=== PATIENT | female | born 1955 | race African-American/Black ===

== ENCOUNTER 2016-12-03 20:59 | Emergency (ER) | payer OTHER ==
[~2016-12-03] VITALS: Ht 154.9 cm; Wt 99.8 kg
[~2016-12-03 20:59] MED LIST: FEXO60TA25 PO; FLUT9.9S NS; OMEP40CA5 PO; SIMV20TA3 PO
[2016-12-03 23:16] VITALS: BP 204/98
[2016-12-04] MEDS ORDERED: HYDROCODONE/APAP 5/325MG TABLET. PO ONE
[2016-12-04] MEDS ORDERED: HYDR-971 PO (01:16)
--- NOTE | 2016-12-04 01:16 | PHYS DOC ---
Past Medical History Past Medical History: Other Additional Past Medical Histor: HIGH CHOL., SINUS Past Surgical History: Hysterectomy, Other Additional Past Surgical Histo: RT BREAST, COLONOSCOPY Smoking: Less than 1pk/day Alcohol Use: Occasionally Drug Use: None Adult General Chief Complaint Chief Complaint: UPPER EXTREMITY INJURY HPI HPI Patient is a 61 year old female who presents with pain after tripping and falling at 1930 tonight. She reports pain in the left elbow and under her right breast. She denies hitting her head or loss of consciousness. She does not have any numbness or tingling or pain in the neck. Her PCP is Dr. Som Santos. Review of Systems Review of Systems Constitutional: Denies fever or chills. [] Respiratory: Denies cough or shortness of breath. [] Cardiovascular: Denies palpitations or edema. Reports right-sided chest wall pain. Musculoskeletal: Denies back pain. Reports left elbow pain. Integument: Denies rash or skin lesions. [] Neurologic: Denies headache, focal weakness or sensory changes. Denies loss of consciousness. Current Medications Current Medications Current Medications Medications (Trade) Dose Ordered Sig/Nerissa Start Time Stop Time Status Last Admin Dose Admin Acetaminophen/ Hydrocodone Bitart (Lortab 5/325) 1 tab 1X ONCE 12/04/16 00:00 12/04/16 00:01 DC 12/03/16 23:52 1 TAB Allergies Allergies Allergies Coded Allergies Type Severity Reaction Last Updated Verified No Known Drug Allergies 12/30/14 No Physical Exam Physical Exam Constitutional: Well developed, well nourished, no acute distress, non-toxic appearance. [] HENT: Normocephalic, atraumatic, oropharynx moist. [] Eyes: PERRLA, EOMI, conjunctiva normal, no discharge. [] Neck: Normal range of motion, no midline or paraspinal tenderness, supple, no stridor. [] Cardiovascular: Heart rate regular rhythm, no murmur. [] Lungs & Thorax: Bilateral breath sounds clear to auscultation without wheezes, rales, or rhonchi. Right lower anterior chest wall tenderness without crepitus. Skin: Warm, dry, no erythema, no rash. There is no laceration, abrasion, ecchymosis, or other external sign of injury. Back: No midline tenderness, no CVA tenderness. [] Extremities: Left olecranon and lateral epicondyle tenderness, ROM mildly decreased due to pain, no edema. 2+ radial and ulnar pulses. Less than 2 second capillary refill in the fingers. Light touch sensation intact in the fingers. There is mild tenderness in the wrist without decreased range of motion. There is no snuffbox tenderness. Neurologic: Alert and oriented X 3, normal motor function, normal sensory function, no focal deficits noted. [] Psychologic: Affect normal, judgement normal, mood normal. [] Current Patient Data Vital Signs Vital Signs Date Time Temp Pulse Resp B/P Pulse Ox O2 Delivery O2 Flow Rate FiO2 12/03/16 23:52 18 99 Room Air 12/03/16 23:16 98.0 92 98.0 12/03/16 22:51 EKG EKG [] Radiology/Procedures Radiology/Procedures Three-view x-ray of the left elbow reviewed and interpreted by myself with Dr. Dhaliwal. There is a sail sign without fracture or dislocation seen. Three-view x-ray of the left wrist reviewed and interpreted by myself with Dr. Dhaliwal. There is no acute fracture or dislocation. X-ray of the right ribs and chest reviewed and interpreted by myself with Dr. Dhaliwal. There aren't no acute fractures, infiltrates, or pneumothorax seen. Course & Med Decision Making Course & Med Decision Making Pertinent Labs and Imaging studies reviewed. (See chart for details) Patient presents with left elbow and right chest wall pain after mechanical fall. On exam, she has tenderness of the left elbow, left wrist, and right ribs. She is neurovascularly intact without compartment syndrome. X-ray shows a steel sign of the left elbow. She is placed in an Ortho-Glass posterior long- arm splint by quality analyst/technical writer. I reexamined the patient after splint application. She remains neurovascularly intact without evidence of compartment syndrome. She is given contact information for orthopedics for follow-up. She is given prescription for [place] for home. Return precautions were discussed. She verbalizes understanding and agrees with plan. Dragon Disclaimer Dragon Disclaimer This electronic medical record was generated, in whole or in part, using a voice recognition dictation system. Departure Departure Impression: Primary Impression: Elbow pain, left Additional Impression: Rib contusion Disposition: 01 HOME, SELF-CARE Condition: STABLE Referrals: SOM SANTOS MD (PCP) SHU LENTZ MD Patient Instructions: Elbow Fracture, Simple, Rib Contusion, Splint Care, Easy- to-Read Additional Instructions: Your x-rays do not show any definite broken bones, however there is high suspicion for a fracture at the left elbow. Please keep the splint in place and keep it dry until follow-up. Please follow-up with the orthopedic doctor listed below. Please take the prescribed pain medication as directed. Do not drive or operate heavy machinery while taking pain medication. Return to emergency department if you have any new or concerning symptoms. Scripts Hydrocodone/Apap 5-325 ([place] 5-325 Tablet)1 Each Tablet1 Tab PO PRN Q6HRS PRN PAIN #20 TAB Prov:TIMOTEO PERALES 12/04/16 Problem Qualifiers Additional Impression: Rib contusion Encounter type: initial encounter Laterality: right Qualified Code: S20.211A - Contusion of right front wall of thorax, initial encounter TIMOTEO PERALES Dec 04, 2016 01:16
--- NOTE | 2016-12-04 07:53 | RAD ---
Left elbow, 3 views, 12/03/2016: History: Injury There is bowing of the fat pads at the elbow joint compatible with a joint effusion. There is mild spurring at the elbow joint. There is a subtle lucency projected over the radial head on one view with a double density along its cortex on another view. The appearance is suggestive of a subtle radial head fracture. IMPRESSION: 1. Left elbow joint effusion. 2. Probable radial head fracture. Radiographic follow-up is suggested. Left wrist, 3 views, 12/03/2016: History: Fall, pain No acute fracture or dislocation is identified. There is a small benign-appearing cyst in the proximal aspect of the scaphoid bone, probably on a degenerative basis. There is mild soft tissue swelling about the wrist. IMPRESSION: No acute bony abnormality is detected.
--- NOTE | 2016-12-04 07:54 | RAD ---
Right RIBS with chest, 3 views, 12/03/2016: History: Fall, pain No fracture or rib abnormality is detected. There is no evidence of underlying pneumothorax, hemothorax or pleural fluid. The heart size is normal. IMPRESSION: No significant right rib abnormality is detected.
== END 2016-12-04 01:30 | disposition home or self-care (01) ==
LOC: ER 20:59
DX: S20.211A Contusion of right front wall of thorax, initial encounter (principal); M25.522 Pain in left elbow; Z90.710 Acquired absence of both cervix and uterus; F17.200 Nicotine dependence, unspecified, uncomplicated; E78.00 Pure hypercholesterolemia, unspecified; W01.0XXA Fall on same level from slipping, tripping and stumbling without subsequent striking against object, initial encounter; Y93.89 Activity, other specified; Y92.89 Other specified places as the place of occurrence of the external cause; Y99.8 Other external cause status
CPT/HCPCS: 29105; 71101; 73080; 73110; 99284-25

== ENCOUNTER 2017-08-10 03:25 | Emergency (ER) | payer OTHER ==
[~2017-08-10] VITALS: Ht 154.9 cm; Wt 104.3 kg
[~2017-08-10 03:25] MED LIST changes: +HYDR-971 PO
[2017-08-10 03:36] VITALS: BP 158/82
--- NOTE | 2017-08-10 03:43 | PHYS DOC ---
Past Medical History Past Medical History: Other Additional Past Medical Histor: HIGH CHOL., SINUS Past Surgical History: Hysterectomy, Other Additional Past Surgical Histo: RT BREAST, COLONOSCOPY Alcohol Use: Occasionally Drug Use: None Adult General Chief Complaint Chief Complaint: GI PROBLEM [facility] Patient is a 62 year old female who presents with one week history of moderate severity worse with eating right lower quadrant abdominal pain, mild nausea no vomiting, constipation last BM yesterday; no fever or flank pain or dysuria. Abdominal surgery: total abdominal hysterectomy; colonoscopy showed polyps in the past. Denies any black or bloody stool. An ice history of ulcers. Denies history of diabetes or heart disease. Review of Systems Review of Systems Constitutional: Denies fever or chills [] Eyes: Denies change in visual acuity, redness, or eye pain [] HENT: Denies nasal congestion or sore throat [] Respiratory: Denies cough or shortness of breath [] Cardiovascular: No additional information not addressed in HPI [] GI: Denies abdominal pain, nausea, vomiting, bloody stools or diarrhea [] : Denies dysuria or hematuria [] Musculoskeletal: Denies back pain or joint pain [] Integument: Denies rash or skin lesions [] Neurologic: Denies headache, focal weakness or sensory changes [] Endocrine: Denies polyuria or polydipsia [] Current Medications Current Medications Current Medications Medications (Trade) Dose Ordered Sig/Nerissa Start Time Stop Time Status Last Admin Dose Admin Ciprofloxacin (Cipro) 500 mg 1X ONCE 08/10/17 05:30 08/10/17 05:30 DC 08/10/17 05:07 500 MG Hydromorphone HCl (Dilaudid) 0.5 mg 1X ONCE 08/10/17 04:00 08/10/17 04:01 DC 08/10/17 04:02 0.5 MG Info (Do NOT chart on this entry -- for MONITORING) 1 each PRN DAILY PRN 08/10/17 04:00 08/10/17 05:09 DC Iohexol (Omnipaque 300 Mg/ml) 75 ml 1X ONCE 08/10/17 04:00 08/10/17 04:01 DC 08/10/17 04:25 75 ML Metronidazole (Flagyl) 500 mg 1X ONCE 08/10/17 05:30 08/10/17 05:30 DC 08/10/17 05:08 500 MG Ondansetron HCl (Zofran) 4 mg 1X ONCE 08/10/17 04:00 08/10/17 04:01 DC 08/10/17 04:00 4 MG Sodium Chloride 500 ml @ 500 mls/hr 1X ONCE 08/10/17 04:00 08/10/17 04:59 DC 08/10/17 04:00 500 MLS/HR Allergies Allergies Allergies Coded Allergies Type Severity Reaction Last Updated Verified No Known Drug Allergies 12/30/14 No Physical Exam Physical Exam Constitutional: Well developed, well nourished, no acute distress, non-toxic appearance. [] HENT: Normocephalic, atraumatic, bilateral external ears normal, oropharynx moist, no oral exudates, nose normal. [] Eyes: PERRLA, EOMI, conjunctiva normal, no discharge. [] Neck: Normal range of motion, no tenderness, supple, no stridor. [] Cardiovascular:Heart rate regular rhythm, no murmur [] Lungs & Thorax: Bilateral breath sounds clear to auscultation [] Abdomen: Bowel sounds normal, soft, mild to moderate right lower quadrant tenderness, no masses, no pulsatile masses. [] Skin: Warm, dry, no erythema, no rash. [] Back: No tenderness, no CVA tenderness. [] Extremities: No tenderness, no cyanosis, no clubbing, ROM intact, no edema. [] Neurologic: Alert and oriented X 3, normal motor function, normal sensory function, no focal deficits noted. [] Psychologic: Affect normal, judgement normal, mood normal. [] Current Patient Data Vital Signs Vital Signs Date Time Temp Pulse Resp B/P (MAP) Pulse Ox O2 Delivery O2 Flow Rate FiO2 08/10/17 04:02 17 95 08/10/17 03:36 97.6 87 158/82 (107) Room Air 97.6 Lab Values Laboratory Tests Test 08/10/17 03:41 08/10/17 03:56 Urine Collection Type Unknown Urine Color Yellow Urine Clarity Clear Urine pH 7.5 Urine Specific [place] 1.020 Urine Protein Negative mg/dL (NEG-TRACE) Urine Glucose (UA) Negative mg/dL (NEG) Urine Ketones (Stick) Negative mg/dL (NEG) Urine Blood Negative (NEG) Urine Nitrite Negative (NEG) Urine Bilirubin Negative (NEG) Urine Urobilinogen Dipstick 1.0 mg/dL (0.2 mg/dL) Urine Leukocyte Esterase Negative (NEG) Urine RBC Occ /HPF (0-2) Urine WBC Occ /HPF (0-4) Urine Squamous Epithelial Cells Many /LPF Urine Bacteria Moderate /HPF (0-FEW) Urine Mucus Slight /LPF White Blood Count 10.1 x10^3/uL (4.0-11.0) Red Blood Count 4.77 x10^6/uL (3.50-5.40) Hemoglobin 14.7 g/dL (12.0-15.5) Hematocrit 44.0 % (36.0-47.0) Mean Corpuscular Volume 92 fL (79-100) Mean Corpuscular Hemoglobin 31 pg (25-35) Mean Corpuscular Hemoglobin Concent 33 g/dL (31-37) Red Cell Distribution Width 13.8 % (11.5-14.5) Platelet Count 222 x10^3/uL (140-400) Neutrophils (%) (Auto) 60 % (31-73) Lymphocytes (%) (Auto) 30 % (24-48) Monocytes (%) (Auto) 8 % (0-9) Eosinophils (%) (Auto) 2 % (0-3) Basophils (%) (Auto) 1 % (0-3) Neutrophils # (Auto) 6.0 x10^3uL (1.8-7.7) Lymphocytes # (Auto) 3.0 x10^3/uL (1.0-4.8) Monocytes # (Auto) 0.8 x10^3/uL (0.0-1.1) Eosinophils # (Auto) 0.2 x10^3/uL (0.0-0.7) Basophils # (Auto) 0.1 x10^3/uL (0.0-0.2) Sodium Level 139 mmol/L (136-145) Potassium Level 4.1 mmol/L (3.5-5.1) Chloride Level 102 mmol/L (98-107) Carbon Dioxide Level 29 mmol/L (21-32) Anion Gap 8 (6-14) Blood Urea Nitrogen 9 mg/dL (7-20) Creatinine 0.8 mg/dL (0.6-1.0) Estimated GFR (Cockcroft-Gault) 87.4 BUN/Creatinine Ratio 11 (6-20) Glucose Level 92 mg/dL (70-99) Calcium Level 9.0 mg/dL (8.5-10.1) Total Bilirubin 0.3 mg/dL (0.2-1.0) Aspartate Amino Transferase (AST) 24 U/L (15-37) Alanine Aminotransferase (ALT) 28 U/L (14-59) Alkaline Phosphatase 87 U/L (46-116) Total Protein 8.1 g/dL (6.4-8.2) Albumin 3.3 g/dL (3.4-5.0) L Albumin/Globulin Ratio 0.7 (1.0-1.7) L Lipase 94 U/L (73-393) Laboratory Tests 08/10/17 03:56 Laboratory Tests 08/10/17 03:56 EKG EKG [] Radiology/Procedures Radiology/Procedures CAT scan abdomen and pelvis was positive for diverticulitis per radiology report [] Course & Med Decision Making Course & Med Decision Making Pertinent Labs and Imaging studies reviewed. (See chart for details) [Plan will be to check labs, urinalysis, CT scan abdomen and pelvis and treat symptomatically. Labs were unremarkable. CT scan demonstrated diverticulitis. Patient's feeling much improved on reexamination at 4:53 AM and she is agreeable to going home and taking antibiotics by mouth.] Dragon Disclaimer Dragon Disclaimer This electronic medical record was generated, in whole or in part, using a voice recognition dictation system. Departure Departure Impression: Primary Impression: Diverticulitis Additional Impression: Right lower quadrant abdominal pain Disposition: 01 HOME, SELF-CARE Condition: IMPROVED Referrals: SOM SANTOS MD (PCP) Patient Instructions: Diverticulitis, Keuv-tp-[id number] Scripts Oxycodone/Apap 5-325 (PERCOCET 5-325 MG TABLET) 1 Each Tablet 1 TAB PO PRN Q6HRS Y for PAIN, #10 TAB 0 Refills Prov: KOKI NOLASCO MD 08/10/17 Ondansetron (ZOFRAN ODT) 4 Mg Tab.rapdis 4 MG PO TID Y for NAUSEA/VOMITING, #10 TAB Prov: KOKI NOLASCO MD 08/10/17 Metronidazole (FLAGYL) 500 Mg Tablet 500 MG PO TID for 10 Days, #30 TAB Prov: KOKI NOLASCO MD 08/10/17 Ciprofloxacin Hcl (CIPRO) 500 Mg Tablet 1 TAB PO BID, #20 TAB Prov: KOKI NOLASCO MD 08/10/17 Problem Qualifiers KOKI NOLASCO MD Aug 10, 2017 03:43
[2017-08-10 03:49] LABS: BILIRUBIN,URINE NEGATIVE (NEG); GLUCOSE,URINE NEGATIVE (NEG); NITRITE,URINE NEGATIVE (NEG); PH,URINE 7.5; PROTEIN,URINE NEGATIVE (NEG-TRACE)
[2017-08-10 03:55] LABS: BACTERIA,URINE MODERATE /HPF (0-FEW); RBC,URINE OCC /HPF (0-2); SQUAMOUS EPITHELIAL CELL,UR MANY /LPF; WBC,URINE OCC /HPF (0-4)
[2017-08-10] MEDS ORDERED: IV NORMAL SALINE 500ML BAG 500 ML IV ONE (04:00)
[2017-08-10] MEDS ORDERED: HYDROmorphone 2 MG/ML VIAL IV ONE (04:00)
[2017-08-10] MEDS ORDERED: IOHEXOL 300 MG/ML 75 ML VIAL IV ONE (04:00)
[2017-08-10] MEDS ORDERED: CONTRAST GIVEN MC PRN (04:00)
[2017-08-10] MEDS ORDERED: ONDANSETRON PF 4 MG/2 ML VIAL. IV ONE (04:00)
[2017-08-10 04:02] LABS: BASO # 0.1 x10^3/uL (0.0-0.2); BASO % 1 % (0-3); EOS % 2 % (0-3); HEMOGLOBIN 14.7 g/dL (12.0-15.5); LYMPH % 30 % (24-48); MEAN CORPUSCULAR HEMOGLOBIN 31 pg (25-35); MEAN CORPUSCULAR HGB CONC 33 g/dL (31-37); MEAN CORPUSCULAR VOLUME 92 fL (79-100); MONO % 8 % (0-9); NEUT % 60 % (31-73); PLATELET COUNT 222 x10^3/uL (140-400); RED BLOOD COUNT 4.77 x10^6/uL (3.50-5.40); RED CELL DISTRIBUTION WIDTH 13.8 % (11.5-14.5); WHITE BLOOD COUNT 10.1 x10^3/uL (4.0-11.0)
[2017-08-10 04:12] LABS: CREATININE 0.8 mg/dL (0.6-1.0); GFR 87.4; POTASSIUM 4.1 mmol/L (3.5-5.1)
[2017-08-10 04:18] LABS: ALBUMIN 3.3 g/dL (3.4-5.0); ALBUMIN/GLOBULIN RATIO 0.7 (1.0-1.7); TOTAL BILIRUBIN 0.3 mg/dL (0.2-1.0); TOTAL PROTEIN 8.1 g/dL (6.4-8.2)
--- NOTE | 2017-08-10 04:45 | RAD ---
CT ABD PELV W/ IV CONTRST ONLY dated 08/10/2017 3:35 AM Indication: Right lower quadrant pain, abdominal painrlq pain; Omni 300, 75ml. Comparison: No comparison is available. Technique: Contiguous axial imaging of the abdomen and pelvis performed after the intravenous administration of 75 cc Isovue-370. One or more of the following individualized dose reduction techniques were utilized for this examination: 1. Automated exposure control 2. Adjustment of the mA and/or kV according to patient size 3. Use of iterative reconstruction technique Findings: Limited images of the lung bases show patchy groundglass opacity in the lower lobes, nonspecific. Heart size within normal limits. No pleural or pericardial effusion. Liver, spleen, pancreas, adrenal glands, gallbladder and kidneys are unremarkable. No hydronephrosis. Low-density lesion mid pole right kidney with some central calcification measuring 2.4 cm in size, indeterminate. Tiny low-density focus at the upper pole right kidney, too small accurately characterize. Unopacified GI tract is normal in caliber and contour. Focal area of wall thickening of the sigmoid colon with pericolonic inflammatory changes. There are a few scattered diverticula. No localized perforation or abscess. No free fluid or lymphadenopathy. The appendix is normal in caliber. Images of pelvis a nondistended urinary bladder. The uterus is surgically absent. No free pelvic fluid or pelvic lymphadenopathy. Bone windows show no acute findings. Multilevel spondylosis. IMPRESSION: 1. Findings consistent with acute sigmoid diverticulitis. No localized perforation or abscess. 2. Small complex cystic lesion at the midpole right kidney. Suggest follow-up imaging in 6 months to ensure stability. 3. Status post hysterectomy. Electronically signed by: Guillermo Hutton MD (08/10/2017 4:41 AM) [id number]
[2017-08-10] MEDS ORDERED: CIPR500T94 PO (04:57)
[2017-08-10] MEDS ORDERED: OXYC-323 PO (04:57)
[2017-08-10] MEDS ORDERED: METR500T PO (04:57)
[2017-08-10] MEDS ORDERED: ONDA4TAB10 PO (04:57)
[2017-08-10] MEDS ORDERED: metroNIDAZOLE 500 MG TABLET PO ONE (05:30)
[2017-08-10] MEDS ORDERED: CIPROFLOXACIN HCL 250 MG TABLET. PO ONE (05:30)
== END 2017-08-10 05:09 | disposition home or self-care (01) ==
LOC: ER 03:25
DX: K57.92 Diverticulitis of intestine, part unspecified, without perforation or abscess without bleeding (principal); Z90.710 Acquired absence of both cervix and uterus; Z86.010 Personal history of colon polyps
CPT/HCPCS: 36415; 74177; 80053; 81001; 83690; 85025; 87086; 96361; 96374; 96375; 99285; J1170; J2405; J7040; Q9967

== ENCOUNTER 2018-04-07 11:03 | Inpatient (IN) | payer OTHER ==
[2018-04-07 11:42] LABS: ADD MAN DIFF? NO
[2018-04-07 11:46] LABS: BASO # 0.1 x10^3/uL (0.0-0.2); BASO % 1 % (0-3); EOS # 0.3 x10^3/uL (0.0-0.7); EOS % 4 % (0-3); HEMATOCRIT 43.8 % (36.0-47.0); HEMOGLOBIN 14.5 g/dL (12.0-15.5); LYMPH # 2.9 x10^3/uL (1.0-4.8); LYMPH % 39 % (24-48); MEAN CORPUSCULAR HEMOGLOBIN 31 pg (25-35); MEAN CORPUSCULAR HGB CONC 33 g/dL (31-37); MEAN CORPUSCULAR VOLUME 94 fL (79-100); MONO # 0.6 x10^3/uL (0.0-1.1); MONO % 9 % (0-9); NEUT # 3.5 x10^3uL (1.8-7.7); NEUT % 48 % (31-73); PLATELET COUNT 216 x10^3/uL (140-400); RED BLOOD COUNT 4.69 x10^6/uL (3.50-5.40); RED CELL DISTRIBUTION WIDTH 14.3 % (11.5-14.5); WHITE BLOOD COUNT 7.3 x10^3/uL (4.0-11.0)
[2018-04-07 11:55] LABS: ANION GAP 8 (6-14); BLOOD UREA NITROGEN 14 mg/dL (7-20); BUN/CREATININE RATIO 16 (6-20); CALCIUM 8.5 mg/dL (8.5-10.1); CARBON DIOXIDE 27 mmol/L (21-32); CHLORIDE 109 mmol/L (98-107); CREATININE 0.9 mg/dL (0.6-1.0); GFR 76.3; GLUCOSE 111 mg/dL (70-99); POTASSIUM 4.7 mmol/L (3.5-5.1); SODIUM 144 mmol/L (136-145)
[2018-04-07 12:00] LABS: ALBUMIN 3.2 g/dL (3.4-5.0); ALBUMIN/GLOBULIN RATIO 0.8 (1.0-1.7); ALK PHOS 104 U/L (46-116); ALT (SGPT) 30 U/L (14-59); AST (SGOT) 23 U/L (15-37); TOTAL BILIRUBIN 0.2 mg/dL (0.2-1.0); TOTAL PROTEIN 7.4 g/dL (6.4-8.2)
[2018-04-07 12:03] LABS: TROPONINI < 0.017 ng/mL (0.000-0.055)
[2018-04-07 12:06] LABS: THYROID STIM HORMONE (TSH) 1.241 uIU/mL (0.358-3.74)
[2018-04-07] MEDS: ASPIRIN 325 MG TABLET PO (12:17)
[2018-04-07 12:26] LABS: NT-PRO BNP 54 pg/mL (0-124)
[2018-04-07 12:26] LABS: CKMB INDEX 0.6 % (0-4); CKMB MASS 1.1 ng/mL (0.0-3.6); CREATINE KINASE 184 U/L (26-192)
[2018-04-07 13:14] LABS: BARBITURATES NEG (NEG); BENZODIAZEPINES NEG (NEG); CANNABINOIDS POS (NEG); COCAINE NEG (NEG); METHADONE NEG (NEG); OPIATES NEG (NEG); PHENCYCLIDINE NEG (NEG)
[2018-04-07 13:16] LABS: AMPHETAMINE/METHAMPHETAMINE NEG (NEG); ETHANOL, URINE NEG (NEG)
[2018-04-07 13:23] LABS: BILIRUBIN,URINE NEGATIVE (NEG); CLARITY,URINE CLEAR; COLOR,URINE YELLOW; GLUCOSE,URINE NEGATIVE (NEG); NITRITE,URINE NEGATIVE (NEG); PH,URINE 5.5; PROTEIN,URINE NEGATIVE (NEG-TRACE); UROBILINOGEN,URINE 0.2 mg/dL (0.2 mg/dL)
[2018-04-07 13:39] LABS: BACTERIA,URINE FEW /HPF (0-FEW); RBC,URINE 0 /HPF (0-2); SQUAMOUS EPITHELIAL CELL,UR MOD /LPF; WBC,URINE OCC /HPF (0-4)
[2018-04-07] MEDS ORDERED: ONDANSETRON PF 4 MG/2 ML VIAL. IV (14:15)
[2018-04-07] MEDS ORDERED: MORPHINE SULFATE 4 MG/ML DISP.SYRIN. IV (14:15)
[2018-04-07] MEDS ORDERED: NITROGLYCERIN SUBLINGUAL 0.4 MG BOTTLE OF 25. SL (14:15)
[2018-04-08 05:19] LABS: ADD MAN DIFF? NO
[2018-04-08 05:42] LABS: BASO # 0.1 x10^3/uL (0.0-0.2); BASO % 1 % (0-3); EOS # 0.2 x10^3/uL (0.0-0.7); EOS % 3 % (0-3); HEMATOCRIT 41.4 % (36.0-47.0); HEMOGLOBIN 13.9 g/dL (12.0-15.5); LYMPH # 3.6 x10^3/uL (1.0-4.8); LYMPH % 44 % (24-48); MEAN CORPUSCULAR HEMOGLOBIN 31 pg (25-35); MEAN CORPUSCULAR HGB CONC 34 g/dL (31-37); MEAN CORPUSCULAR VOLUME 93 fL (79-100); MONO # 0.6 x10^3/uL (0.0-1.1); MONO % 8 % (0-9); NEUT # 3.6 x10^3uL (1.8-7.7); NEUT % 44 % (31-73); PLATELET COUNT 201 x10^3/uL (140-400); RED BLOOD COUNT 4.46 x10^6/uL (3.50-5.40); RED CELL DISTRIBUTION WIDTH 14.3 % (11.5-14.5); WHITE BLOOD COUNT 8.1 x10^3/uL (4.0-11.0)
[2018-04-08 06:09] LABS: ALBUMIN 3.1 g/dL (3.4-5.0); ALBUMIN/GLOBULIN RATIO 0.8 (1.0-1.7); ALK PHOS 84 U/L (46-116); ALT (SGPT) 28 U/L (14-59); ANION GAP 7 (6-14); AST (SGOT) 18 U/L (15-37); BLOOD UREA NITROGEN 13 mg/dL (7-20); BUN/CREATININE RATIO 14 (6-20); CALCIUM 8.3 mg/dL (8.5-10.1); CARBON DIOXIDE 27 mmol/L (21-32); CHLORIDE 106 mmol/L (98-107); CREATININE 0.9 mg/dL (0.6-1.0); GFR 76.3; GLUCOSE 82 mg/dL (70-99); POTASSIUM 4.2 mmol/L (3.5-5.1); SODIUM 140 mmol/L (136-145); TOTAL BILIRUBIN 0.4 mg/dL (0.2-1.0); TOTAL PROTEIN 7.1 g/dL (6.4-8.2)
[2018-04-08 06:14] LABS: CHOLESTEROL 152 mg/dL (0-200); HDLC 47 mg/dL (40-60); LDLC 91 mg/dL (0-100); NON-HDL CHOLESTEROL 105 mg/dL (0-129); TRIGLYCERIDES 72 mg/dL (0-150); VLDLC 14 mg/dL (0-40)
[2018-04-08 06:15] LABS: CHOLESTEROL/HDL RATIO 3.2
[2018-04-08] MEDS: REGADENOSON 0.4 MG/5 ML DISP.SYRIN. IV (09:18)
[2018-04-08 10:17] LABS: TROPONINI < 0.017 ng/mL (0.000-0.055)
[2018-04-08] MEDS ORDERED: SIMVASTATIN 20 MG TABLET PO (21:00)
[2018-04-09] MEDS ORDERED: PANTOPRAZOLE 40 MG TABLET.DR. PO (07:30)
[2018-04-09] MEDS ORDERED: FLUTICASONE 50MCG/NASAL SPRAY 16GM BOTTLE. NS (09:00)
[2018-04-09] MEDS ORDERED: CETIRIZINE HCL 10 MG TABLET. PO (09:00)
[2018-04-15] MEDS ORDERED: NON FORMULARY ITEM (Alendronate Sodium 70 MG) PO (09:00)
== END 2018-04-08 14:45 | disposition home or self-care (01) | DRG 303 ==
LOC: ER 11:03 → 5 NORTH 13:50
DX: I25.10 Atherosclerotic heart disease of native coronary artery without angina pectoris (principal); Z68.41 Body mass index [BMI] 40.0-44.9, adult; E78.00 Pure hypercholesterolemia, unspecified; K21.9 Gastro-esophageal reflux disease without esophagitis; F12.90 Cannabis use, unspecified, uncomplicated; F17.210 Nicotine dependence, cigarettes, uncomplicated; E78.5 Hyperlipidemia, unspecified; K57.90 Diverticulosis of intestine, part unspecified, without perforation or abscess without bleeding; I10 Essential (primary) hypertension; E66.01 Morbid (severe) obesity due to excess calories; Z90.710 Acquired absence of both cervix and uterus; Z86.010 Personal history of colon polyps; Z82.49 Family history of ischemic heart disease and other diseases of the circulatory system; Z80.3 Family history of malignant neoplasm of breast
CPT/HCPCS: 36415; 71045; 78452; 80053; 80061; 80307; 81001; 82553; 83735; 83880; 84443; 84484; 85025; 93005; 93017; 93306; 96374; 96375; 99285-25; 99406; A9500; J2785

== ENCOUNTER 2021-11-11 16:55 | Inpatient (IN) | payer MEDICARE, OTHER ==
[~2021-11-11] VITALS: Ht 154.9 cm; Wt 108.4 kg
[~2021-11-11 16:55] MED LIST changes: +ALEN70TA71 PO; +CIPR500T94 PO; +HYDR-3164 PO; -HYDR-971 PO; +METR500T PO; -OMEP40CA5 PO; +OMEP40CA7 PO; +ONDA4TAB10 PO; +OXYC1TAB15 PO; +SIMV20TA18 PO; -SIMV20TA3 PO
[2021-11-11] MEDS ORDERED: ASPIRIN CHEWABLE 81 MG TABLET. PO ONE (17:15)
--- NOTE | 2021-11-11 17:22 | RAD ---
EXAM: Chest, single view. HISTORY: Chest pain. COMPARISON: 04/07/2018 FINDINGS: A frontal view of the chest is obtained. There is diffuse increased interstitial opacity. T here is no consolidation, pleural effusion or pneumothorax. There is a stable cardiac silhouette. IMPRESSION: Slight interval increase in diffuse opacity likely due to interstitial infiltrate. Electronically signed by: Angela Segovia MD (11/11/2021 5:20 PM) [facility]
[2021-11-11] MEDS ORDERED: fentaNYL PF VIAL 100 MCG/2 ML VIAL IVP ONE (17:30)
[2021-11-11 17:39] LABS: BASO # 0.1 x10^3/uL (0.0-0.2); BASO % 1 % (0-3); EOS # 0.2 x10^3/uL (0.0-0.7); EOS % 3 % (0-3); HEMATOCRIT 39.1 % (36.0-47.0); HEMOGLOBIN 12.8 g/dL (12.0-15.5); LYMPH # 2.4 x10^3/uL (1.0-4.8); LYMPH % 29 % (24-48); MEAN CORPUSCULAR HEMOGLOBIN 31 pg (25-35); MEAN CORPUSCULAR HGB CONC 33 g/dL (31-37); MEAN CORPUSCULAR VOLUME 93 fL (79-100); MONO # 0.9 x10^3/uL (0.0-1.1); MONO % 11 % (0-9); NEUT # 4.7 x10^3/uL (1.8-7.7); NEUT % 57 % (31-73); PLATELET COUNT 192 x10^3/uL (140-400); RED CELL DISTRIBUTION WIDTH 13.9 % (11.5-14.5); WHITE BLOOD COUNT 8.3 x10^3/uL (4.0-11.0)
[2021-11-11 17:49] LABS: BILIRUBIN,URINE NEGATIVE (NEG); CLARITY,URINE CLEAR; COLOR,URINE YELLOW; NITRITE,URINE NEGATIVE (NEG); PROTEIN,URINE NEGATIVE (NEG-TRACE); UROBILINOGEN,URINE 0.2 mg/dL (0.2 mg/dL)
--- NOTE | 2021-11-11 17:56 | PHYS DOC ---
Past Medical History Past Medical History: GERD, High Cholesterol, Hypertension, Sinusitis Additional Past Medical Histor: polyps, seasonal allergies Past Surgical History: Hysterectomy Additional Past Surgical Histo: RT BREAST, COLONOSCOPY Smoking Status: Former Smoker Additional Information: recent cessation 11/04 Alcohol Use: Occasionally Drug Use: Marijuana General Adult EDM: Chief Complaint: CHEST PAIN HPI: HPI: Patient is a 66 year old female with past medical history of high blood pressure, high cholesterol, GERD who presents with substernal chest pain that began 30 mins prior to arrival. States that she was eating tuna when her low substernal/epigastric pain began. Patient states that it is sharp in nature and was very intense, but has improved since onset. She reports associated headache and her blood pressure was elevated at 187/101. She denies NVD, diaphoresis, palpitations, shortness of breath, cough associated with her pain. 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 She reports she has had "3 tests" in the past, which were normal. She was informed that she has "calcium buildup." Review of Systems: Review of Systems: Constitutional: Denies fever, chills or generalized weakness Eyes: Denies change in visual acuity, visual field deficits or discharge HENT: Denies ear pain, nasal congestion or sore throat Respiratory: See HPI Cardiovascular: See HPI GI: See HPI : Denies dysuria or hematuria Musculoskeletal: Denies back pain or joint pain Integument: Denies rash or other skin lesion Neurologic: See HPI Heart Score: C/O Chest Pain: Yes HEART Score for Chest Pain: HEART Score for Chest Pain Response (Comments) Value History Moderately Suspicious 1 ECG Normal 0 Age > 65 2 Risk Factors >3 Risk Factors or Hx CAD 2 Troponin < Normal Limit 0 Total 5 Risk Factors: Risk Factors: recent (<one month) smoker, HTN, HLD, obesity. Risk Scores: Score 0 - 3: 2.5% MACE over next 6 weeks - Discharge Home Score 4 - 6: 20.3% MACE over next 6 weeks - Admit for Clinical Observation Score 7 - 10: 72.7% MACE over next 6 weeks - Early Invasive Strategies Current Medications: Current Medications Medications (Trade) Dose Ordered Sig/Nerissa Start Time Stop Time Status Last Admin Dose Admin Aspirin (Aspirin Chewable) 324 mg 1X ONCE 11/11/21 17:15 11/11/21 17:15 DC Fentanyl Citrate (Fentanyl 2ml Vial) 50 mcg 1X ONCE 11/11/21 17:30 11/11/21 17:31 DC Allergies: Allergies: Allergies Coded Allergies Type Severity Reaction Last Updated Verified No Known Drug Allergies 11/11/21 No Physical Exam: PE: Constitutional: Well developed, well nourished, no acute distress, non-toxic appearance. HENT: Normocephalic, atraumatic, bilateral external ears normal, nose normal. Eyes: EOMI, conjunctiva normal, no discharge. Neck: Normal range of motion, no stridor, no JVD. Cardiovascular: Heart rate regular rhythm, no murmur. Lungs & Thorax: Bilateral breath sounds clear to auscultation. Abdomen: Bowel sounds normal, soft, no rebound or guarding, no masses, no pulsatile masses. Skin: Warm, dry, no erythema, no rash. Extremities: No tenderness, no cyanosis, no clubbing, ROM intact, trace edema L>R. Neurologic: Alert and oriented x4, no focal deficits noted. Current Patient Data: Labs: Laboratory Tests Test 11/11/21 17:15 11/11/21 17:25 11/11/21 17:32 Lipase 132 U/L (73-393) White Blood Count 8.3 x10^3/uL (4.0-11.0) Red Blood Count 4.20 x10^6/uL (3.50-5.40) Hemoglobin 12.8 g/dL (12.0-15.5) Hematocrit 39.1 % (36.0-47.0) Mean Corpuscular Volume 93 fL (79-100) Mean Corpuscular Hemoglobin 31 pg (25-35) Mean Corpuscular Hemoglobin Concent 33 g/dL (31-37) Red Cell Distribution Width 13.9 % (11.5-14.5) Platelet Count 192 x10^3/uL (140-400) Neutrophils (%) (Auto) 57 % (31-73) Lymphocytes (%) (Auto) 29 % (24-48) Monocytes (%) (Auto) 11 % (0-9) Eosinophils (%) (Auto) 3 % (0-3) Basophils (%) (Auto) 1 % (0-3) Neutrophils # (Auto) 4.7 x10^3/uL (1.8-7.7) Lymphocytes # (Auto) 2.4 x10^3/uL (1.0-4.8) Monocytes # (Auto) 0.9 x10^3/uL (0.0-1.1) Eosinophils # (Auto) 0.2 x10^3/uL (0.0-0.7) Basophils # (Auto) 0.1 x10^3/uL (0.0-0.2) Sodium Level 141 mmol/L (136-145) Potassium Level 4.0 mmol/L (3.5-5.1) Chloride Level 107 mmol/L (98-107) Carbon Dioxide Level 28 mmol/L (21-32) Anion Gap 6 (6-14) Blood Urea Nitrogen 16 mg/dL (7-20) Creatinine 1.0 mg/dL (0.6-1.0) Estimated GFR (Cockcroft-Gault) 66.7 BUN/Creatinine Ratio 16 (6-20) Glucose Level 99 mg/dL (70-99) Calcium Level 8.3 mg/dL (8.5-10.1) Magnesium Level 1.9 mg/dL (1.8-2.4) Total Bilirubin 0.3 mg/dL (0.2-1.0) Aspartate Amino Transf (AST/SGOT) 16 U/L (15-37) Alanine Aminotransferase (ALT/SGPT) 30 U/L (14-59) Alkaline Phosphatase 91 U/L (46-116) Troponin I High Sensitivity 5 ng/L (4-50) PD-Pky-O-Type Natriuretic Peptide 662 pg/mL (0-124) Total Protein 7.5 g/dL (6.4-8.2) Albumin 3.0 g/dL (3.4-5.0) Albumin/Globulin Ratio 0.7 (1.0-1.7) Urine Collection Type Void Urine Color Yellow Urine Clarity Clear Urine pH 6.0 (<5.0-8.0) Urine Specific [place] 1.010 (1.000-1.030) Urine Protein Negative mg/dL (NEG-TRACE) Urine Glucose (UA) Negative mg/dL (NEG) Urine Ketones (Stick) Negative mg/dL (NEG) Urine Blood Negative (NEG) Urine Nitrite Negative (NEG) Urine Bilirubin Negative (NEG) Urine Urobilinogen Dipstick 0.2 mg/dL (0.2 mg/dL) Urine Leukocyte Esterase Negative (NEG) Urine RBC 1-2 /HPF (0-2) Urine WBC 1-4 /HPF (0-4) Urine Squamous Epithelial Cells Occ /LPF Urine Bacteria Few /HPF (0-FEW) 11/11/21 17:25 Vital Signs: Vital Signs Date Time Temp Pulse Resp B/P (MAP) Pulse Ox O2 Delivery O2 Flow Rate FiO2 11/11/21 19:10 68 184/85 (118) 97 Room Air 11/11/21 18:10 70 228/109 (148) 99 Room Air 11/11/21 17:40 68 231/107 (148) 98 Room Air 11/11/21 17:12 98.4 74 18 181/106 (131) 97 Room Air 98.4 EKG: EKG: EKG Interpreted by Dr. Echeverria at 1708: Regular rate and rhythm 73 bpm with no ectopic beats. QT 346 ms/QTc 384 ms. No STEMI. Radiology/Procedures: Radiology/Procedures: PROCEDURE: PORTABLE CHEST 1V EXAM: Chest, single view. HISTORY: Chest pain. COMPARISON: 04/07/2018 FINDINGS: A frontal view of the chest is obtained. There is diffuse increased interstitial opacity. There is no consolidation, pleural effusion or pneumothorax. There is a stable cardiac silhouette. IMPRESSION: Slight interval increase in diffuse opacity likely due to interstitial infiltrate. Electronically signed by: Angela Segovia MD (11/11/2021 5:20 PM) [facility] PROCEDURE: CT ANGIO CHEST ABD PELVIS CT arteriogram of the chest with contrast, CT arteriogram abdomen pelvis with contrast HISTORY: Chest pain, hypertension, evaluate for aortic dissection CT arteriogram of the chest was done before and after 100 mL Omnipaque 350 contrast. Three-dimensional images were reconstructed of the aorta. Thyroid is homogeneous. There is no pleural effusion. There is no intramural hematoma on the noncontrast images. Arteriogram images were obtained. Origins the great vessels at the aortic arch are patent. Left carotid artery has its origin on the innominate artery. There is no aortic aneurysm or dissection. There is respiratory motion artifact. There are no confluent infiltrates. There is no effusion. There is no mediastinal adenopathy. There is no central pulmonary embolus, contrast is more contraindicated in the aorta.. IMPRESSION: 1. No thoracic aortic aneurysm or dissection. 2. A central pulmonary embolus is not identified. 3. Respiratory motion artifact. 4. No acute infiltrates. End impression CT arteriogram abdomen pelvis CT arteriogram the abdomen pelvis was done before and after contrast. Three- dimensional images were obtained to the aorta. There is no abdominal aortic aneurysm. Postcontrast images show no focal liver lesion. There is no calcified gallstone or gallbladder wall thickening. Spleen and adrenal glands are normal. Pancreas is normal. There is a left renal cysts. There is a complicated septated right renal cyst with calcification, the lesion is marginally more prominent than the old study from July 2017. Follow-up with ultrasound could be of benefit. There are other small benign renal cysts. There is no periaortic adenopathy. There is mild atherosclerotic change in the aorta without an aneurysm. Celiac, superior mesenteric, and renal arteries are patent with mild calcified plaque. Inferior mesenteric artery is patent. There is plaque in the aorta without stenosis. Iliac arteries have mild plaque without stenosis. There is no bowel obstruction. There is no ascites. There is no free air. There is been a previous hysterectomy. There is diverticulosis of the colon without an acute diverticulitis. Degenerative disc disease at L5-S1. IMPRESSION: 1. Complicated right renal cyst mildly more prominent than the old study or ultrasound would be of benefit for further evaluation. 2. No aortic aneurysm or dissection noted. 3. No liver lesion noted. 4. No bowel obstruction or other acute finding. PQRS Compliance Statement: One or more of the following individualized dose reduction techniques were utilized for this examination: 1. Automated exposure control 2. Adjustment of the mA and/or kV according to patient size 3. Use of iterative reconstruction technique Electronically signed by: Seth Mendieta MD (11/11/2021 6:58 PM) [facility] Course & Med Decision Making: Course & Med Decision Making Pertinent Labs and Imaging studies reviewed. (See chart for details) Patient is a 66-year-old female who presents with chest pain that began an hour prior to arrival. Given presentation and history above, differential includes gastrointestinal as well as cardiac etiology. Work-up will consist of labs, EKG, chest x-ray, CTA chest abdomen pelvis. Patient provided with medication for her pain. Work-up is remarkable for elevated BNP, which is new compared to prior lab values. Patient has heart score of 5 secondary to age and past medical history. Should be admitted to hospitalist service for observation and cardiac consultation. Spoke with Dr. Rodríguez, who is aware of patient case and gladly agrees to see the patient tomorrow morning. Discussed plan of care with the patient and her at bedside, who agreed to admission and consultation in the morning. Morgan Disclaimer: Dragon Disclaimer: This electronic medical record was generated, in whole or in part, using a voice recognition dictation system. Departure Departure Impression: Primary Impression: Chest pain Qualified Codes: R07.89 - Other chest pain Additional Impression: Elevated brain natriuretic peptide (BNP) level Disposition: ADMITTED INPATIENT Admitting Physician: JUNE Smith) Condition: GUARDED Referrals: SOM SANTOS MD (PCP) NEVIN ENCARNACION Nov 11, 2021 17:56
[2021-11-11 17:59] LABS: CALCIUM 8.3 mg/dL (8.5-10.1); GFR 66.7
[2021-11-11 18:01] LABS: ALBUMIN/GLOBULIN RATIO 0.7 (1.0-1.7); MAGNESIUM 1.9 mg/dL (1.8-2.4); TOTAL BILIRUBIN 0.3 mg/dL (0.2-1.0); TOTAL PROTEIN 7.5 g/dL (6.4-8.2)
[2021-11-11 18:05] LABS: BACTERIA,URINE FEW /HPF (0-FEW)
[2021-11-11] MEDS ORDERED: CONTRAST GIVEN. MC PRN (18:15)
[2021-11-11] MEDS ORDERED: IOHEXOL 350 MG/ML 100 ML VIAL. IV ONE (18:30)
--- NOTE | 2021-11-11 19:00 | RAD ---
CT arteriogram of the chest with contrast, CT arteriogram abdomen pelvis with contrast HISTORY: Chest pain, hypertension, evaluate for aortic dissection CT arteriogram of the chest was done before and after 100 mL Omnipaque 350 contrast. Three-dimensiona l images were reconstructed of the aorta. Thyroid is homogeneous. There is no pleural effusion. There is no intramural hematoma on the noncontrast images. Arteriogram images were obtained. Origins the great vessels at the aortic arch are patent. Left carot id artery has its origin on the innominate artery. There is no aortic aneurysm or dissection. There i s respiratory motion artifact. There are no confluent infiltrates. There is no effusion. There is no mediastinal adenopathy. There is no central pulmonary embolus, contrast is more contraindicated in th e aorta.. IMPRESSION: 1. No thoracic aortic aneurysm or dissection. 2. A central pulmonary embolus is not identified. 3. Respiratory motion artifact. 4. No acute infiltrates. End impression CT arteriogram abdomen pelvis CT arteriogram the abdomen pelvis was done before and after contrast. Three-dimensional images were o btained to the aorta. There is no abdominal aortic aneurysm. Postcontrast images show no focal liver lesion. There is no calcified gallstone or gallbladder wall t hickening. Spleen and adrenal glands are normal. Pancreas is normal. There is a left renal cysts. The re is a complicated septated right renal cyst with calcification, the lesion is marginally more promi nent than the old study from July 2017. Follow-up with ultrasound could be of benefit. There are o ther small benign renal cysts. There is no periaortic adenopathy. There is mild atherosclerotic yung e in the aorta without an aneurysm. Celiac, superior mesenteric, and renal arteries are patent with m ild calcified plaque. Inferior mesenteric artery is patent. There is plaque in the aorta without sten osis. Iliac arteries have mild plaque without stenosis. There is no bowel obstruction. There is no as cites. There is no free air. There is been a previous hysterectomy. There is diverticulosis of the co rafaela without an acute diverticulitis. Degenerative disc disease at L5-S1. IMPRESSION: 1. Complicated right renal cyst mildly more prominent than the old study or ultrasound would be of be nefit for further evaluation. 2. No aortic aneurysm or dissection noted. 3. No liver lesion noted. 4. No bowel obstruction or other acute finding. PQRS Compliance Statement: One or more of the following individualized dose reduction techniques were utilized for this examinat ion: 1. Automated exposure control 2. Adjustment of the mA and/or kV according to patient size 3. Use of iterative reconstruction technique Electronically signed by: Seth Mendieta MD (11/11/2021 6:58 PM) [facility]
[2021-11-11 19:22] VITALS: BP 170/84
--- NOTE | 2021-11-11 22:16 | EKG ---
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
[2021-11-11] MEDS ORDERED: ONDANSETRON PF 4 MG/2 ML VIAL. IVP PRN (23:00)
[2021-11-11] MEDS ORDERED: NITROGLYCERIN SUBLINGUAL 0.4 MG BOTTLE OF 25. SL PRN (23:00)
[2021-11-11 23:09] VITALS: BP 160/75
[2021-11-12 03:09] VITALS: BP 171/79
[2021-11-12] MEDS ORDERED: METO25TA4 PO (08:51)
[2021-11-12] MEDS ORDERED: OMEP20CA16 PO (08:51)
[2021-11-12] MEDS ORDERED: ALBU2.5V8 INH (08:51)
[2021-11-12] MEDS ORDERED: FEXO180T16 PO (08:51)
[2021-11-12] MEDS ORDERED: ATOR40TA PO (08:51)
[2021-11-12] MEDS ORDERED: ASPI-630 PO (08:51)
[2021-11-12] MEDS ORDERED: ACET500P23 PO (08:51)
[2021-11-12] MEDS ORDERED: ACETAMINOPHEN 500 MG TABLET PO PRN (09:00)
[2021-11-12] MEDS ORDERED: ALBUTEROL SULFATE 2.5 MG/3 ML NEBU. INH PRN (09:15)
[2021-11-12 09:39] VITALS: BP 179/77
[2021-11-12] MEDS ORDERED: CETIRIZINE HCL 10 MG TABLET. PO SCH (10:00)
[2021-11-12] MEDS ORDERED: ASPIRIN CHEWABLE 81 MG TABLET. PO SCH (10:00)
[2021-11-12] MEDS ORDERED: FLUTICASONE 50MCG/NASAL SPRAY 16GM BOTTLE. NS SCH (10:00)
[2021-11-12] MEDS ORDERED: METOPROLOL TART IMMED RELEASE 25 MG TABLET. PO SCH (10:00)
[2021-11-12] MEDS ORDERED: PANTOPRAZOLE 40 MG TABLET.DR. PO SCH (10:00)
[2021-11-12] MEDS ORDERED: ONDANSETRON PF 4 MG/2 ML VIAL. IVP PRN (10:15)
[2021-11-12] MEDS ORDERED: CALCIUM CARBONATE 500 MG TAB.CHEW PO PRN (10:15)
[2021-11-12] MEDS ORDERED: FUROSEMIDE 40 MG/4 ML VIAL. IVP ONE (10:15)
[2021-11-12] MEDS ORDERED: ZOLPIDEM 5 MG TABLET. PO PRN (10:15)
[2021-11-12] MEDS ORDERED: ACETAMINOPHEN 325 MG TABLET. PO PRN (10:15)
[2021-11-12] MEDS ORDERED: ELECTROLYTE (NON-ICU) PROTOCOL. MC PRN (10:15)
[2021-11-12 11:00] VITALS: BP 160/82
--- NOTE | 2021-11-12 13:22 | PDOC2 ---
CARDIOLOGY CONSULT NOTE DATE OF SERVICE: DATE: 11/12/21 TIME: 13:19 CHIEF COMPLAINT: Chest discomfort HPI: Jes is a pleasant 66-year-old woman who comes into the ER for chest discomfort. Initial evaluation in the ER revealed hypertensive urgency. She has been since treated. She reports that her chest pain is improved. Evaluation including EKG and troponin were unremarkable. Patient has known apparently coronary atherosclerosis although this is based on what appears to be a CT coronary calcium score. She apparently had been started on a beta-beverly and statin therapy. She currently does not have any significant dyspnea or exertional problems. She reports that her blood pressures at home are normally controlled in the 140 and less systolic range PMHX: 1. Presumed coronary atherosclerosis 2. Prior history of tobacco abuse and quit in September 2021 3. Hypertension 4. Dyslipidemia 5. Obesity SOCHX: As noted above. No alcohol or illicit drug use FAMHX: Noncontributory CURRENT MEDS: Current Medications Medications (Trade) Dose Ordered Sig/Nerissa Route PRN Reason Start Time Stop Time Status Last Admin Dose Admin Iohexol (Omnipaque 350 Mg/ml) 100 ml 1X ONCE IV 11/11/21 18:30 11/11/21 18:31 DC 11/11/21 18:40 Acetaminophen (Tylenol) 500 mg PRN Q6HRS PRN PO MILD PAIN / TEMP > 100.3'F 11/12/21 09:00 11/12/21 09:31 Aspirin (Aspirin Chewable) 81 mg DAILY PO 11/12/21 10:00 11/12/21 09:31 Metoprolol Tartrate (Lopressor) 25 mg BID PO 11/12/21 10:00 11/12/21 09:31 Cetirizine HCl (ZyrTEC) 10 mg DAILY PO 11/12/21 10:00 11/12/21 09:32 Fluticasone Propionate (Flonase) 2 spray DAILY NS 11/12/21 10:00 11/12/21 10:00 Pantoprazole Sodium (Protonix) 40 mg DAILYAC PO 11/12/21 10:00 11/12/21 09:30 ALLERGIES: Allergies Coded Allergies Type Severity Reaction Last Updated Verified No Known Drug Allergies 11/11/21 No ROS: Negative for 10 out of 14 systems reviewed unless in the note above in HPI PHYSICAL EXAM: Vital Signs/I&O: Vital Signs Date Time Temp Pulse Resp B/P (MAP) Pulse Ox O2 Delivery O2 Flow Rate FiO2 11/12/21 09:39 75 179/77 (111) 92 Room Air 11/12/21 03:09 21 11/11/21 17:12 98.4 98.4 Physical Exam: The patient appeared well nourished and normally developed. Head exam is unremarkable. No scleral icterus or corneal arcus noted. Neck is without jugular venous distension, thyromegaly, or carotid bruits. Carotid upstrokes are brisk bilaterally. Lungs are clear to auscultation and percussion. Cardiac exam reveals the PMI to be normally sized and situated. Rhythm is regular. First and second heart sounds normal. No murmurs, rubs or gallops. Abdominal exam reveals normal bowel sounds, no masses, no organomegaly and no aortic enlargement. Extremities are nonedematous and both femoral and pedal pulses are normal. Msk: No traumua Neuro: No focal deficits DIAGNOSTIC TESTING: EKG is unremarkable Cardiac enzymes are negative BNP is mildly elevated Chest x-ray and CT angio reviewed. No obvious findings. Lab Laboratory Tests Test 11/11/21 17:15 11/11/21 17:25 11/11/21 17:32 11/11/21 20:46 Lipase 132 U/L (73-393) White Blood Count 8.3 x10^3/uL (4.0-11.0) Red Blood Count 4.20 x10^6/uL (3.50-5.40) Hemoglobin 12.8 g/dL (12.0-15.5) Hematocrit 39.1 % (36.0-47.0) Mean Corpuscular Volume 93 fL (79-100) Mean Corpuscular Hemoglobin 31 pg (25-35) Mean Corpuscular Hemoglobin Concent 33 g/dL (31-37) Red Cell Distribution Width 13.9 % (11.5-14.5) Platelet Count 192 x10^3/uL (140-400) Neutrophils (%) (Auto) 57 % (31-73) Lymphocytes (%) (Auto) 29 % (24-48) Monocytes (%) (Auto) 11 % (0-9) H Eosinophils (%) (Auto) 3 % (0-3) Basophils (%) (Auto) 1 % (0-3) Neutrophils # (Auto) 4.7 x10^3/uL (1.8-7.7) Lymphocytes # (Auto) 2.4 x10^3/uL (1.0-4.8) Monocytes # (Auto) 0.9 x10^3/uL (0.0-1.1) Eosinophils # (Auto) 0.2 x10^3/uL (0.0-0.7) Basophils # (Auto) 0.1 x10^3/uL (0.0-0.2) Sodium Level 141 mmol/L (136-145) Potassium Level 4.0 mmol/L (3.5-5.1) Chloride Level 107 mmol/L (98-107) Carbon Dioxide Level 28 mmol/L (21-32) Anion Gap 6 (6-14) Blood Urea Nitrogen 16 mg/dL (7-20) Creatinine 1.0 mg/dL (0.6-1.0) Estimated GFR (Cockcroft-Gault) 66.7 BUN/Creatinine Ratio 16 (6-20) Glucose Level 99 mg/dL (70-99) Calcium Level 8.3 mg/dL (8.5-10.1) L Total Bilirubin 0.3 mg/dL (0.2-1.0) Aspartate Amino Transf (AST/SGOT) 16 U/L (15-37) Alkaline Phosphatase 91 U/L (46-116) Troponin I High Sensitivity 5 ng/L (4-50) Total Protein 7.5 g/dL (6.4-8.2) Albumin 3.0 g/dL (3.4-5.0) L Albumin/Globulin Ratio 0.7 (1.0-1.7) L Urine Collection Type Void Urine Color Yellow Urine Clarity Clear Urine pH 6.0 (<5.0-8.0) Urine Specific [place] 1.010 (1.000-1.030) Urine Protein Negative mg/dL (NEG-TRACE) Urine Glucose (UA) Negative mg/dL (NEG) Urine Ketones (Stick) Negative mg/dL (NEG) Urine Blood Negative (NEG) Urine Nitrite Negative (NEG) Urine Bilirubin Negative (NEG) Urine Urobilinogen Dipstick 0.2 mg/dL (0.2 mg/dL) Urine Leukocyte Esterase Negative (NEG) Urine RBC 1-2 /HPF (0-2) Urine WBC 1-4 /HPF (0-4) Urine Squamous Epithelial Cells Occ /LPF Urine Bacteria Few /HPF (0-FEW) SARS-CoV-2 RNA (HEAVENLY) Negative (Negative) SARS-CoV-2 Antigen (Rapid) Negative (NEGATIVE) Test 11/11/21 21:00 Troponin I High Sensitivity 7 ng/L (4-50) Laboratory Tests 11/11/21 17:25 ASSESSMENT: 1. Hypertensive urgency 2. Presumed coronary atherosclerosis 3. Dyslipidemia 4. Obesity 5. Prior history of tobacco abuse PLAN: 1. At this time no further cardiovascular testing is necessary. Consider for outpatient stress testing. 2. Start amlodipine 10 mg daily and monitor for hypertension. Okay to discharge from a cardiac perspective. Please call with any further questions. CAMILLE VERA MD Nov 12, 2021 13:22
[2021-11-12 13:44] VITALS: BP 160/82
[2021-11-12] MEDS ORDERED: HEPARIN for SUB-Q USE 5,000 UNIT/ML VIAL. SQ SCH (14:00)
[2021-11-12] MEDS ORDERED: AMLO-187 PO (14:41)
--- NOTE | 2021-11-12 14:44 | PDOC1 ---
History and Physical Date of Service: DOS: DATE: 11/12/21 TIME: 14:42 Chief Complaint: Chief Complain: chest pian History of Present Illness: HPI: Patient is a 66 year old female with past medical history of high blood pressure, high cholesterol, GERD who presents with substernal chest pain that began 30 mins prior to arrival. States that she was eating tuna when her low substernal/epigastric pain began. Patient states that it is sharp in nature and was very intense, but has improved since onset. She reports associated headache and her blood pressure was elevated at 187/101. She denies NVD, diaphoresis, palpitations, shortness of breath, cough associated with her pain. 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. She reports she has had "3 tests" in the past, which were normal. She was informed that she has "calcium buildup." Past Medical/Surgical History: PMH/PSH: Past Medical History: GERD, High Cholesterol, Hypertension, Sinusitis Additional Past Medical Histor: polyps, seasonal allergies Past Surgical History: Hysterectomy Additional Past Surgical Histo: RT BREAST, COLONOSCOPY Smoking Status: Former Smoker Additional Information: recent cessation 11/04 Alcohol Use: Occasionally Drug Use: Marijuana Allergies: Allergies: Coded Allergies: No Known Drug Allergies (Unverified , 11/11/21) Family History: Family History: none known Current Medications: Current Medications Current Medications Aspirin (Aspirin Chewable) 324 mg 1X ONCE PO ; Start 11/11/21 at 17:15; Stop 11/11/21 at 17:15; Status DC Fentanyl Citrate (Fentanyl 2ml Vial) 50 mcg 1X ONCE IVP ; Start 11/11/21 at 17:30; Stop 11/11/21 at 17:31; Status DC Iohexol (Omnipaque 350 Mg/ml) 100 ml 1X ONCE IV Last administered on 11/11/21at 18:40; Start 11/11/21 at 18:30; Stop 11/11/21 at 18:31; Status DC Info (CONTRAST GIVEN -- Rx MONITORING) 1 each PRN DAILY PRN MC SEE COMMENTS; Start 11/11/21 at 18:15; Stop 11/13/21 at 18:14 Ondansetron HCl (Zofran) 4 mg PRN Q8HRS PRN IVP NAUSEA/VOMITING 1ST CHOICE; Start 11/11/21 at 23:00; Stop 11/12/21 at 13:29; Status DC Nitroglycerin (Nitrostat) 0.4 mg PRN Q5MIN PRN SL CHEST PAIN; Start 11/11/21 at 23:00; Stop 11/12/21 at 22:59 Acetaminophen (Tylenol) 500 mg PRN Q6HRS PRN PO MILD PAIN / TEMP > 100.3'F Last administered on 11/12/21at 09:31; Start 11/12/21 at 09:00 Albuterol Sulfate (Ventolin Neb Soln) 2.5 mg PRN Q6HRS PRN INH SHORTNESS OF BREATH; Start 11/12/21 at 09:15 Aspirin (Aspirin Chewable) 81 mg DAILY PO Last administered on 11/12/21at 09:31; Start 11/12/21 at 10:00 Atorvastatin Calcium (Lipitor) 40 mg QHS PO ; Start 11/12/21 at 21:00 Metoprolol Tartrate (Lopressor) 25 mg BID PO Last administered on 11/12/21at 09:31; Start 11/12/21 at 10:00 Cetirizine HCl (ZyrTEC) 10 mg DAILY PO Last administered on 11/12/21at 09:32; Start 11/12/21 at 10:00 Fluticasone Propionate (Flonase) 2 spray DAILY NS Last administered on 11/12/21at 10:00; Start 11/12/21 at 10:00 Pantoprazole Sodium (Protonix) 40 mg DAILYAC PO Last administered on 11/12/21at 09:30; Start 11/12/21 at 10:00 Ondansetron HCl (Zofran) 4 mg PRN Q6HRS PRN IVP NAUSEA/VOMITING; Start 11/12/21 at 10:15 Calcium Carbonate/ Glycine (Tums) 500 mg PRN Q3HRS PRN PO UPSET STOMACH; Start 11/12/21 at 10:15 Zolpidem Tartrate (Ambien) 5 mg PRN QHS PRN PO INSOMNIA, MAY REPEAT IN 1HR; Start 11/12/21 at 10:15 Info (Non-Icu Electrolyte Protocol) 1 ea PRN DAILY PRN MC SEE COMMENTS; Start 11/12/21 at 10:15 Acetaminophen (Tylenol) 650 mg PRN Q6HRS PRN PO Headaches, Temp > 101.5F; Start 11/12/21 at 10:15 Senna/Docusate Sodium (Senna Plus) 1 tab BID PO ; Start 11/12/21 at 21:00 Heparin Sodium (Porcine) (Heparin Sodium) 5,000 unit Q8HRS SQ Last administered on 11/12/21at 13:46; Start 11/12/21 at 14:00 Furosemide (Lasix) 40 mg 1X ONCE IVP Last administered on 11/12/21at 13:43; Start 11/12/21 at 10:15; Stop 11/12/21 at 10:17; Status DC Amlodipine Besylate (Norvasc) 10 mg 1X ONCE PO Last administered on 11/12/21at 13:44; Start 11/12/21 at 14:00; Stop 11/12/21 at 14:01; Status DC Amlodipine Besylate (Norvasc) 10 mg DAILY PO ; Start 11/13/21 at 09:00 Active Scripts Active Reported Tylenol Extra Strength (Acetaminophen) 500 Mg Powd.pack 500 Mg PO Q6HRS PRN Proair Hfa Inhaler (Albuterol Sulfate) 8.5 Gm Hfa.aer.ad 1 Puff INH PRN Q6HRS PRN Aspirin 81 Mg Tab.chew 1 Tab PO DAILY Metoprolol Tartrate 25 Mg Tablet 1 Tab PO BID Fexofenadine Hcl 180 Mg Tablet 1 Tab PO DAILY Omeprazole 20 Mg Capsule.dr 1 Cap PO DAILY Lipitor (Atorvastatin Calcium) 40 Mg Tablet 1 Tab PO DAILY Alendronate Sodium 70 Mg Tablet 70 Mg PO WEEKLY ROS: Review of Systems Review of System Unless noted in HPI 14 point review systems is negative Physical Exam: Vital Signs: Vital Signs Date Time Temp Pulse Resp B/P (MAP) Pulse Ox O2 Delivery O2 Flow Rate FiO2 11/12/21 13:44 62 160/82 11/12/21 09:39 92 Room Air 11/12/21 03:09 21 11/11/21 17:12 98.4 98.4 Physcial Exam: GEN: No apparent distress. Alert and oriented HEENT: Normal cephalic, atraumatic, external auditory canals are patent EYES: Extraocular muscles are intact, pupil are equally round and reactive to light and accommodation MUSCULOSKELETAL: Well developed , well nourished, good range of motion ENDOCRINE: No thyromegaly was palpated LYMPHATICS: No cervical chain or axillary nodes were noted HEMATOPOIETIC: No bruising NECK: Supple, no JVD, no thyromegaly was noted LUNGS: Clear to auscultation in all lung diaz without rhonchi or wheezing HEART: RRR, S!, S2 present. Peripheral pulses intact, no obvious murmurs noted ABDOMEN: Soft, nontender. Positive bowel sounds, no organomegaly, normal bowel sounds EXTREMITIES: Without clubbing, cyanosis, or edema. Pedal pulses intact. Negative Homans sign NEUROLOGIC: Normal speech and tone. A&O x 3, moves all extremities, no obvious focal deficits PSYCHIATRIC: Normal affect, normal mood. Stable SKIN: No ulcerations or rashes, good skin turgor, no jaundice VASCULAR: Good capillary refill, neurovascular bundle appears to be intact Labs: Labs: Laboratory Tests Test 11/11/21 17:15 11/11/21 17:25 11/11/21 17:32 11/11/21 20:46 Lipase 132 U/L (73-393) White Blood Count 8.3 x10^3/uL (4.0-11.0) Red Blood Count 4.20 x10^6/uL (3.50-5.40) Hemoglobin 12.8 g/dL (12.0-15.5) Hematocrit 39.1 % (36.0-47.0) Mean Corpuscular Volume 93 fL (79-100) Mean Corpuscular Hemoglobin 31 pg (25-35) Mean Corpuscular Hemoglobin Concent 33 g/dL (31-37) Red Cell Distribution Width 13.9 % (11.5-14.5) Platelet Count 192 x10^3/uL (140-400) Neutrophils (%) (Auto) 57 % (31-73) Lymphocytes (%) (Auto) 29 % (24-48) Monocytes (%) (Auto) 11 % (0-9) Eosinophils (%) (Auto) 3 % (0-3) Basophils (%) (Auto) 1 % (0-3) Neutrophils # (Auto) 4.7 x10^3/uL (1.8-7.7) Lymphocytes # (Auto) 2.4 x10^3/uL (1.0-4.8) Monocytes # (Auto) 0.9 x10^3/uL (0.0-1.1) Eosinophils # (Auto) 0.2 x10^3/uL (0.0-0.7) Basophils # (Auto) 0.1 x10^3/uL (0.0-0.2) Sodium Level 141 mmol/L (136-145) Potassium Level 4.0 mmol/L (3.5-5.1) Chloride Level 107 mmol/L (98-107) Carbon Dioxide Level 28 mmol/L (21-32) Anion Gap 6 (6-14) Blood Urea Nitrogen 16 mg/dL (7-20) Creatinine 1.0 mg/dL (0.6-1.0) Estimated GFR (Cockcroft-Gault) 66.7 BUN/Creatinine Ratio 16 (6-20) Glucose Level 99 mg/dL (70-99) Calcium Level 8.3 mg/dL (8.5-10.1) Magnesium Level 1.9 mg/dL (1.8-2.4) Total Bilirubin 0.3 mg/dL (0.2-1.0) Aspartate Amino Transf (AST/SGOT) 16 U/L (15-37) Alanine Aminotransferase (ALT/SGPT) 30 U/L (14-59) Alkaline Phosphatase 91 U/L (46-116) Troponin I High Sensitivity 5 ng/L (4-50) GK-Juq-S-Type Natriuretic Peptide 662 pg/mL (0-124) Total Protein 7.5 g/dL (6.4-8.2) Albumin 3.0 g/dL (3.4-5.0) Albumin/Globulin Ratio 0.7 (1.0-1.7) Urine Collection Type Void Urine Color Yellow Urine Clarity Clear Urine pH 6.0 (<5.0-8.0) Urine Specific [place] 1.010 (1.000-1.030) Urine Protein Negative mg/dL (NEG-TRACE) Urine Glucose (UA) Negative mg/dL (NEG) Urine Ketones (Stick) Negative mg/dL (NEG) Urine Blood Negative (NEG) Urine Nitrite Negative (NEG) Urine Bilirubin Negative (NEG) Urine Urobilinogen Dipstick 0.2 mg/dL (0.2 mg/dL) Urine Leukocyte Esterase Negative (NEG) Urine RBC 1-2 /HPF (0-2) Urine WBC 1-4 /HPF (0-4) Urine Squamous Epithelial Cells Occ /LPF Urine Bacteria Few /HPF (0-FEW) SARS-CoV-2 RNA (HEAVENLY) Negative (Negative) SARS-CoV-2 Antigen (Rapid) Negative (NEGATIVE) Test 11/11/21 21:00 Troponin I High Sensitivity 7 ng/L (4-50) Laboratory Tests Test 11/11/21 17:15 11/11/21 17:25 11/11/21 17:32 11/11/21 20:46 Lipase 132 U/L (73-393) White Blood Count 8.3 x10^3/uL (4.0-11.0) Red Blood Count 4.20 x10^6/uL (3.50-5.40) Hemoglobin 12.8 g/dL (12.0-15.5) Hematocrit 39.1 % (36.0-47.0) Mean Corpuscular Volume 93 fL (79-100) Mean Corpuscular Hemoglobin 31 pg (25-35) Mean Corpuscular Hemoglobin Concent 33 g/dL (31-37) Red Cell Distribution Width 13.9 % (11.5-14.5) Platelet Count 192 x10^3/uL (140-400) Neutrophils (%) (Auto) 57 % (31-73) Lymphocytes (%) (Auto) 29 % (24-48) Monocytes (%) (Auto) 11 % (0-9) Eosinophils (%) (Auto) 3 % (0-3) Basophils (%) (Auto) 1 % (0-3) Neutrophils # (Auto) 4.7 x10^3/uL (1.8-7.7) Lymphocytes # (Auto) 2.4 x10^3/uL (1.0-4.8) Monocytes # (Auto) 0.9 x10^3/uL (0.0-1.1) Eosinophils # (Auto) 0.2 x10^3/uL (0.0-0.7) Basophils # (Auto) 0.1 x10^3/uL (0.0-0.2) Sodium Level 141 mmol/L (136-145) Potassium Level 4.0 mmol/L (3.5-5.1) Chloride Level 107 mmol/L (98-107) Carbon Dioxide Level 28 mmol/L (21-32) Anion Gap 6 (6-14) Blood Urea Nitrogen 16 mg/dL (7-20) Creatinine 1.0 mg/dL (0.6-1.0) Estimated GFR (Cockcroft-Gault) 66.7 BUN/Creatinine Ratio 16 (6-20) Glucose Level 99 mg/dL (70-99) Calcium Level 8.3 mg/dL (8.5-10.1) Magnesium Level 1.9 mg/dL (1.8-2.4) Total Bilirubin 0.3 mg/dL (0.2-1.0) Aspartate Amino Transf (AST/SGOT) 16 U/L (15-37) Alanine Aminotransferase (ALT/SGPT) 30 U/L (14-59) Alkaline Phosphatase 91 U/L (46-116) Troponin I High Sensitivity 5 ng/L (4-50) EL-Ukv-P-Type Natriuretic Peptide 662 pg/mL (0-124) Total Protein 7.5 g/dL (6.4-8.2) Albumin 3.0 g/dL (3.4-5.0) Albumin/Globulin Ratio 0.7 (1.0-1.7) Urine Collection Type Void Urine Color Yellow Urine Clarity Clear Urine pH 6.0 (<5.0-8.0) Urine Specific [place] 1.010 (1.000-1.030) Urine Protein Negative mg/dL (NEG-TRACE) Urine Glucose (UA) Negative mg/dL (NEG) Urine Ketones (Stick) Negative mg/dL (NEG) Urine Blood Negative (NEG) Urine Nitrite Negative (NEG) Urine Bilirubin Negative (NEG) Urine Urobilinogen Dipstick 0.2 mg/dL (0.2 mg/dL) Urine Leukocyte Esterase Negative (NEG) Urine RBC 1-2 /HPF (0-2) Urine WBC 1-4 /HPF (0-4) Urine Squamous Epithelial Cells Occ /LPF Urine Bacteria Few /HPF (0-FEW) SARS-CoV-2 RNA (HEAVENLY) Negative (Negative) SARS-CoV-2 Antigen (Rapid) Negative (NEGATIVE) Test 11/11/21 21:00 Troponin I High Sensitivity 7 ng/L (4-50) Assessment/Plan Assessment/Plan Chest pain hypertension significant cardiac history -Blood pressure control -Trend troponin -Cards consult -Prescribed amlodipine -To DC from ED Justifications for Admission Other Justification ENRIQUETA PARK MD Nov 12, 2021 14:44
--- NOTE | 2021-11-12 14:45 | PDOC3 ---
[facility]-Discharge Summary Date of Admission: Date of Admission: Nov 12, 2021 Date of Discharge: Date of Discharge: Nov 12, 2021 Admission Diagnosis: Problems: (1) Chest pain (2) Elevated brain natriuretic peptide (BNP) level Consults: Consults: Cardiology Hospital Course: Hospital Course: Patient is a 66 year old female with past medical history of high blood pressure, high cholesterol, GERD who presents with substernal chest pain that began 30 mins prior to arrival. States that she was eating tuna when her low substernal/epigastric pain began. Patient states that it is sharp in nature and was very intense, but has improved since onset. She reports associated headache and her blood pressure was elevated at 187/101. She denies NVD, diaphoresis, palpitations, shortness of breath, cough associated with her pain. 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. She reports she has had "3 tests" in the past, which were normal. She was informed that she has "calcium buildup." Patient monitored in ED blood pressure improved. Starting amlodipine for now. Chest pain resolved as well. Work-up pretty unremarkable patient can discharge home per emergency room. Will prescribe amlodipine 30 days. She has PCP follow-up on Saturday. Advised her to see customer development manager soon as well. Greater than 30 minutes spent on DC 19 minutes advance care planning. Disposition: Disposition/Orders: D/C to Home Activity: Activity: Resume previous activity Diet: Diet: Cardiac Medications: Home Meds Active Scripts Amlodipine Besylate (AMLODIPINE BESYLATE) 10 Mg Tablet, 10 MG PO DAILY for htn for 30 Days, #30 TAB Prov:ENRIQUETA PARK MD 11/12/21 Reported Medications Acetaminophen (Tylenol Extra Strength) 500 Mg Powd.pack, 500 MG PO Q6HRS PRN for MILD PAIN / TEMP > 100.3'F, PKT 11/12/21 Albuterol Sulfate (PROAIR HFA INHALER) 8.5 Gm Hfa.aer.ad, 1 PUFF INH PRN Q6HRS PRN for SHORTNESS OF BREATH, EACH 0 Refills 11/12/21 Aspirin (ASPIRIN) 81 Mg Tab.chew, 1 TAB PO DAILY for heart health, #30 TAB 3 Refills 11/12/21 Metoprolol Tartrate (METOPROLOL TARTRATE) 25 Mg Tablet, 1 TAB PO BID for beta beverly, #180 TAB 1 Refill 11/12/21 Fexofenadine Hcl (FEXOFENADINE HCL) 180 Mg Tablet, 1 TAB PO DAILY for allergies, #30 TAB 5 Refills 11/12/21 Omeprazole (OMEPRAZOLE) 20 Mg Capsule.dr, 1 CAP PO DAILY for acid reflux, #30 CAP 5 Refills 11/12/21 Atorvastatin Calcium (LIPITOR) 40 Mg Tablet, 1 TAB PO DAILY for cholesterol, #30 TAB 5 Refills 11/12/21 Alendronate Sodium (ALENDRONATE SODIUM) 70 Mg Tablet, 70 MG PO WEEKLY 04/07/18 Fluticasone Propionate (Flonase Allergy Relief) 9.9 Ml [place].susp, 2 SPRAY NS DAILY for allergies 12/30/14 Discontinued Reported Medications Fexofenadine Hcl (LIMA ALLERGY) 60 Mg Tablet, 60 MG PO PRN DAILY PRN for ALLERGIES, TAB 12/30/14 Omeprazole (OMEPRAZOLE) 40 Mg Capsule.dr, 1 CAP PO DAILY, #30 CAP 3 Refills 12/30/14 Simvastatin (SIMVASTATIN) 20 Mg Tablet, 1 TAB PO HS, #30 TAB 5 Refills 12/30/14 Scheduled Alendronate Sodium (Alendronate Sodium), 70 MG PO WEEKLY, (Reported) Amlodipine Besylate (Amlodipine Besylate), 10 MG PO DAILY Aspirin (Aspirin), 1 TAB PO DAILY, (Reported) Atorvastatin Calcium (Lipitor), 1 TAB PO DAILY, (Reported) Fexofenadine Hcl (Fexofenadine Hcl), 1 TAB PO DAILY, (Reported) Fluticasone Propionate (Flonase Allergy Relief), 2 SPRAY NS DAILY, (Reported) Metoprolol Tartrate (Metoprolol Tartrate), 1 TAB PO BID, (Reported) Omeprazole (Omeprazole), 1 CAP PO DAILY, (Reported) Scheduled PRN Acetaminophen (Tylenol Extra Strength), 500 MG PO Q6HRS PRN for MILD PAIN / TEMP > 100.3'F, (Reported) Albuterol Sulfate (Proair Hfa Inhaler), 1 PUFF INH PRN Q6HRS PRN for SHORTNESS OF BREATH, (Reported) Discontinued Medications Fexofenadine Hcl ([place] Allergy), 60 MG PO PRN DAILY PRN for ALLERGIES, (Repo rted) Discontinued Reason: Prescription changed Omeprazole (Omeprazole), 1 CAP PO DAILY, (Reported) Discontinued Reason: Prescription changed Simvastatin (Simvastatin), 1 TAB PO HS, (Reported) Discontinued Reason: Prescription changed Justicifation of Admission Dx: Justifications for Admission: Justification of Admission Dx: Yes (chest pain) ENRIQUETA PARK MD Nov 12, 2021 14:45
--- NOTE | 2021-11-12 17:59 | NUR ---
Patient discharge home with self care today, vial wheelchair, accompanied by this RN. Patient is stable, IV removed, and discharge paperwork given to patient. Patient verbalized understanding of follow up and discharge instruction.
[2021-11-12] MEDS ORDERED: ATORVASTATIN CALCIUM 40 MG TABLET. PO SCH (21:00)
[2021-11-12] MEDS ORDERED: SENNOSIDES/DOCUSATE 8.6/50MG TABLET. PO SCH (21:00)
== END 2021-11-12 18:58 | disposition home or self-care (01) | DRG 305 ==
LOC: ER 16:55 → ED HOLD 18:03
PROVIDERS: ADMIT Internal Medicine; ATTEND Internal Medicine
DX: I16.0 Hypertensive urgency (principal); Z68.42 Body mass index [BMI] 45.0-49.9, adult; E66.9 Obesity, unspecified; E78.00 Pure hypercholesterolemia, unspecified; E78.5 Hyperlipidemia, unspecified; I10 Essential (primary) hypertension; I25.10 Atherosclerotic heart disease of native coronary artery without angina pectoris; I70.0 Atherosclerosis of aorta; K57.30 Diverticulosis of large intestine without perforation or abscess without bleeding; M51.37 Other intervertebral disc degeneration, lumbosacral region; N28.1 Cyst of kidney, acquired; Z87.891 Personal history of nicotine dependence; Z90.710 Acquired absence of both cervix and uterus; K21.9 Gastro-esophageal reflux disease without esophagitis; R79.89 Other specified abnormal findings of blood chemistry; Z20.822 Contact with and (suspected) exposure to COVID-19; R07.89 Other chest pain
CPT/HCPCS: 36415; 71045; 71275; 74174; 80053; 81001; 83690; 83735; 83880; 84484; 85025; 87426; 93005; J1644; J1940; Q9967; U0003; U0005; 99285-25

== ENCOUNTER → 2021-12-08 | Outpatient (CLI) | payer MEDICARE ==
[2021-11-12 13:44] VITALS: BP 160/82
[~2021-12-08] MED LIST changes: +ACET500P23 PO; +ALBU2.5V8 INH; +AMLO-187 PO; +ASPI-630 PO; +ATOR40TA PO; +FEXO-213 PO; +METO25TA4 PO; +OMEP20CA16 PO
--- NOTE | 2021-12-08 16:09 | RAD ---
Bilateral lower extremity venous real time grayscale, color and spectral duplex ultrasound was perfor med. History: Leg swelling and calf pain Comparison: None. Findings: The common femoral, femoral and popliteal veins demonstrate anechoic lumina, full compressibility, an d cephalad color doppler flow. The bilateral posterior tibial veins are unremarkable. Impression: No evidence of DVT in either lower extremity. Electronically signed by: Carlos Eduardo Duvall MD (12/08/2021 4:06 PM) [facility] [place]
--- NOTE | 2021-12-08 16:23 | RAD ---
EXAM: CT CHEST WITHOUT CONTRAST (LDCT LUNG CANCER SCREENING). HISTORY: Risk factors for pulmonary malignancy. Tobacco dependence. TECHNIQUE: CT of the chest was performed without intravenous contrast using a low-dose lung screening protocol. Findings analysis is based on ACR Lung-RADS v1.1. *One or more of the following individual ized dose reduction techniques were utilized for this examination: 1. Automated exposure control. 2. Adjustment of the mA and/or kV according to patient size. 3. Use of iterative reconstruction technique. COMPARISON: None. FINDINGS: The heart is normal in size. There is coronary artery calcification. There is aortic and ao rtic great vessel calcified atherosclerotic plaque. There are few nonspecific mediastinal lymph nodes . This includes an enlarged precarinal lymph node or lymph node conglomerate measuring 2.3 cm. There are calcified left hilar granulomas. There is no pneumothorax. There is no pleural effusion. There is mild emphysema There is linear scarring or atelectasis within the anterior medial right upper lobe. There is linear atelectasis or scarring within the lingula. There is no suspicious pulmonary nodule. There is no acute finding involving the upper abdomen. There is no suspicious osseous finding. IMPRESSION/RECOMMENDATION: 1. No suspicious pulmonary nodule. Lung RADS category 1: Low dose lung cancer screening CT in 12 [facility] hs is recommended. 2. Mild emphysema with linear scarring or atelectasis within the anterior medial right upper lobe and lingula. 3. Prominent precarinal lymph node or lymph node conglomerate measuring 2.3 cm. This may be reactive or physiologic. Attention at the time of CT follow-up is recommended. Electronically signed by: Angela Segovia MD (12/08/2021 4:21 PM) [id number]
== END ==
LOC: US 15:01
PROVIDERS: ATTEND Internal Medicine
DX: Z12.2 Encounter for screening for malignant neoplasm of respiratory organs (principal); J43.9 Emphysema, unspecified; J84.10 Pulmonary fibrosis, unspecified; I25.10 Atherosclerotic heart disease of native coronary artery without angina pectoris; I70.0 Atherosclerosis of aorta; M79.669 Pain in unspecified lower leg; R60.0 Localized edema; M79.89 Other specified soft tissue disorders; F17.200 Nicotine dependence, unspecified, uncomplicated
CPT/HCPCS: 71271; 93970